=== PATIENT | female | born 2005 ===

== ENCOUNTER 2024-12-28 10:55 | Outpatient (CLI) | payer MEDICAID, SELFPAY ==
[2024-12-28 12:59] LABS: ALT 25 U/L (14-59); AST 21 U/L (15-37); Albumin 3.9 g/dL (3.4-5.0); Alkaline Phosphatase 91 U/L (46-116); Anion Gap 6.6 mmol/L (3-11); BUN 10 mg/dL (7-18); Bilirubin, Total 0.3 mg/dL (0.2-1.0); CO2 28.4 mmol/L (21.0-32.0); Calcium 9.7 mg/dL (8.5-10.1); Chloride 106 mmol/L (98-107); Estimated GFR 126.11 (mL/min/1.73m2); Glucose 74 mg/dL (74-106); Potassium 3.6 mmol/L (3.5-5.1); Sodium 141 mmol/L (136-145); TSH (W/Ref FT4) 1.55 uIU/mL (0.36-3.74); Total Protein 8.1 g/dL (6.4-8.2)
[2024-12-28 21:27] LABS: FSH 4.1 mIU/mL (See Note); LH 2.3 mIU/mL (See Note)
== END 2024-12-28 10:56 | disposition home or self-care (01) ==
LOC: LBO 10:56
PROVIDERS: Visit Provider Obstetrics & Gynecology
DX: N92.6 Irregular menstruation, unspecified (principal)
CPT/HCPCS: 36415; 80053; 83498; 83001; 83002; 84146; 84443

== ENCOUNTER 2025-01-11 00:54 | Outpatient (CLI) | payer MEDICAID, SELFPAY ==
--- NOTE | 2025-01-11 06:45 | DI.US_ITS ---
Exam(s) US PELVIS TRANSVAGINAL EXAM: US PELVIS TRANSVAGINAL CLINICAL HISTORY: anatomy,ovarian cyst, n83.209 TECHNIQUE: Transabdominal and transvaginal imaging was performed using standard protocol. COMPARISON: No exams were available for comparison FINDINGS: UTERUS: Anteverted. 6.7 x 3.4 x 3.5 cm Endometrium: 3 mm Myometrium: Unremarkable. Cervix: Nabothian cysts. Trace amount of fluid in cervical canal. OVARIES: Right: Cyst or mass: 18 millimeter dominant follicle. Left: Cyst or mass: None. DOPPLER: Color: Symmetric and uniform flow to both ovaries. No hyperemia. CUL-DE-SAC: Free fluid: None. IMPRESSION: 1. Normal-appearing uterus with endometrial stripe within normal limits. 2. Unremarkable bilateral ovaries. DATA REPOSITORY:
== END 2025-01-11 01:14 ==
PROVIDERS: PCP Registered Nurse; Visit Provider Obstetrics & Gynecology
DX: N83.202 Unspecified ovarian cyst, left side (principal)
CPT/HCPCS: 76830; 76856